=== PATIENT | male | born 1985 | race Caucasian/White ===

== ENCOUNTER 2017-05-15 16:47 | Emergency (ER) | payer OTHER ==
[~2017-05-15] VITALS: Ht 172.7 cm; Wt 84.0 kg
[2017-05-15] MEDS ORDERED: NORCO 5/3251 TABLET PO (18:51)
[2017-05-15 19:17] VITALS: BP 128/85
== END 2017-05-15 19:18 | disposition home or self-care (01) ==
LOC: EME 16:47
DX: S40.011A Contusion of right shoulder, initial encounter (principal); W22.09XA Striking against other stationary object, initial encounter; Y93.01 Activity, walking, marching and hiking; F17.200 Nicotine dependence, unspecified, uncomplicated
CPT/HCPCS: 73030; 99281; 99284